=== PATIENT | male | born 1970 | race Caucasian/White ===

== ENCOUNTER 2024-01-30 07:13 | Emergency (ER) | payer OTHER ==
[~2024-01-30] VITALS: Ht 162.6 cm; Wt 83.9 kg
[~2024-01-30 07:13] MED LIST: CITA20 PO; HYDACE10B PO; HYDACE5 PO; LIDO5TP TD; OXYACE5T PO; TRAM50 PO
[2024-01-30] MEDS ORDERED: ATORVASTATIN CA20 MG PO (08:05)
[2024-01-30] MEDS ORDERED: LOSARTAN POTASS25 M2 PO (08:05)
[2024-01-30] MEDS ORDERED: Meclizine HCl 25 MG Tab PO ONE (08:05)
[2024-01-30] MEDS ORDERED: FUROSEMIDE20 MG PO (08:05)
[2024-01-30 08:11] LABS: BASOPHILS ABSOLUTE AUTO 0.03 K/mm3 (0.00-0.23); BASOPHILS PERCENT AUTO 0 % (0-2); EOSINOPHILS ABSOLUTE AUTO 0.05 K/mm3 (0.00-0.68); EOSINOPHILS PERCENT AUTO 1 % (0-6); Hematocrit 43.6 % (37.0-53.0); Hemoglobin 15.2 g/dL (13.5-17.5); IMMATURE GRAN ABSOLUTE AUTO 0.04 K/mm3 (0.00-0.10); IMMATURE GRAN PERCENT AUTO 1 % (0-1); LYMPHOCYTES PERCENT AUTO 23 % (21-46); MONOCYTES ABSOLUTE AUTO 0.58 K/mm3 (0.16-1.47); MONOCYTES PERCENT AUTO 8 % (4-13); Mean Corpuscular HGB 32.8 pg (26.0-34.0); Mean Corpuscular HGB Conc 34.9 g/dL (31.5-36.5); Mean Corpuscular Volume 94 fL (80-100); Mean Platelet Volume 10.8 fL (9.1-12.4); NEUTROPHILS ABSOLUTE AUTO 4.98 K/mm3 (1.96-9.15); NEUTROPHILS PERCENT AUTO 68 % (41-73); Platelet Count 168 K/mm3 (150-400); RDW Coefficient Variation 12.4 % (11.7-14.2); Red Blood Cell Count 4.64 M/mm3 (4.30-5.90); White Blood Cell Count 7.38 K/mm3 (4.00-11.30)
[2024-01-30 08:30] LABS: Albumin, Blood 4.2 g/dL (3.4-5.0); Albumin/Globulin Ratio 1.1 (0.8-1.8); Bilirubin, Total 0.6 mg/dL (0.1-1.0); Bun/Creatinine Ratio 13.5 (12.0-20.0); Calcium, Blood 8.6 mg/dL (8.5-10.1); Creatinine, Blood 0.89 mg/dL (0.60-1.20); Globulin, Blood 3.7 g/dL (2.2-4.0); Potassium, Blood 3.8 mmol/L (3.5-5.5); Total Protein, Blood 7.9 g/dL (6.4-8.2)
[2024-01-30] MEDS ORDERED: MECL25 PO (08:58)
[2024-01-30 09:02] VITALS: BP 108/86
== END 2024-01-30 09:20 | disposition home or self-care (01) ==
LOC: ER 07:13
PROVIDERS: Emergency Medicine
DX: R40.4 Transient alteration of awareness (principal); R42 Dizziness and giddiness; R06.02 Shortness of breath; G47.33 Obstructive sleep apnea (adult) (pediatric); E78.5 Hyperlipidemia, unspecified; F17.210 Nicotine dependence, cigarettes, uncomplicated; Z88.0 Allergy status to penicillin; Z88.5 Allergy status to narcotic agent
CPT/HCPCS: 71045; 80053; 84484; 85025; 93005; 93010; 99284-25; A9270

== ENCOUNTER → 2024-04-10 | Outpatient (CLI) | payer OTHER ==
[~2024-04-10] MED LIST changes: +ATORVASTATIN CA20 MG PO; +ATORVASTATIN CA80 M1 PO; +CEFD300 PO; +ENTRESTO 24 MG1 EAC2 PO; +FURO20 PO; +FUROSEMIDE20 MG PO; +JARDIANCE10 MG PO; +LEVAQUIN750 MG PO; +LOSARTAN POTASS25 M2 PO; +MECL25 PO; +METO25ER PO; +POTCHL20ER PO
[2024-04-10 14:34] LABS: BASOPHILS ABSOLUTE AUTO 0.03 K/mm3 (0.00-0.23); BASOPHILS PERCENT AUTO 0 % (0-2); EOSINOPHILS PERCENT AUTO 0 % (0-6); Hematocrit 46.6 % (37.0-53.0); Hemoglobin 15.9 g/dL (13.5-17.5); IMMATURE GRAN ABSOLUTE AUTO 0.08 K/mm3 (0.00-0.10); IMMATURE GRAN PERCENT AUTO 1 % (0-1); LYMPHOCYTES PERCENT AUTO 9 % (21-46); MONOCYTES ABSOLUTE AUTO 1.34 K/mm3 (0.16-1.47); MONOCYTES PERCENT AUTO 9 % (4-13); Mean Corpuscular HGB 32.9 pg (26.0-34.0); Mean Corpuscular HGB Conc 34.1 g/dL (31.5-36.5); Mean Corpuscular Volume 97 fL (80-100); Mean Platelet Volume 10.4 fL (9.1-12.4); NEUTROPHILS ABSOLUTE AUTO 12.43 K/mm3 (1.96-9.15); NEUTROPHILS PERCENT AUTO 81 % (41-73); Platelet Count 171 K/mm3 (150-400); RDW Coefficient Variation 12.4 % (11.7-14.2); RDW Standard Deviation 43.8 fL (35.1-46.3); Red Blood Cell Count 4.83 M/mm3 (4.30-5.90); White Blood Cell Count 15.28 K/mm3 (4.00-11.30)
[2024-04-10 14:47] LABS: Albumin, Blood 3.9 g/dL (3.4-5.0); Albumin/Globulin Ratio 0.9 (0.8-1.8); Bilirubin, Total 1.5 mg/dL (0.1-1.0); Bun/Creatinine Ratio 12.6 (12.0-20.0); Creatinine, Blood 1.27 mg/dL (0.60-1.20); Globulin, Blood 4.5 g/dL (2.2-4.0); Potassium, Blood 3.9 mmol/L (3.5-5.5); Total Protein, Blood 8.4 g/dL (6.4-8.2)
== END ==
LOC: LAB SHORT 14:29
PROVIDERS: Chiropractor
DX: R00.0 Tachycardia, unspecified (principal); R41.82 Altered mental status, unspecified
CPT/HCPCS: 80053; 84484; 85025

== ENCOUNTER → 2024-04-10 | Outpatient (CLI) | payer OTHER | LOC: LAB SHORT 17:09 | DX: R82.998 Other abnormal findings in urine (principal) | CPT/HCPCS: 87086 ==

== ENCOUNTER 2024-04-11 08:59 | Inpatient (IN) | payer OTHER ==
[~2024-04-11] VITALS: Ht 162.6 cm; Wt 81.4 kg
[~2024-04-11 08:59] MED LIST changes: -ATORVASTATIN CA80 M1 PO; -CEFD300 PO; -ENTRESTO 24 MG1 EAC2 PO; -FURO20 PO; -JARDIANCE10 MG PO; -LEVAQUIN750 MG PO; -METO25ER PO; -POTCHL20ER PO
[2024-04-11] MEDS ORDERED: CefTRIAXone Sodium 2,000 MG in NS 100 ML IV ONE (09:25)
[2024-04-11] MEDS ORDERED: NS 1,000 ML IV SCH ×2 (09:25→09:45)
[2024-04-11] MEDS ORDERED: Acetaminophen 500 MG Tab PO ONE (10:05)
[2024-04-11 10:06] LABS: BASOPHILS ABSOLUTE AUTO 0.04 K/mm3 (0.00-0.23); BASOPHILS PERCENT AUTO 0 % (0-2); EOSINOPHILS PERCENT AUTO 0 % (0-6); Hematocrit 46.7 % (37.0-53.0); Hemoglobin 15.6 g/dL (13.5-17.5); IMMATURE GRAN ABSOLUTE AUTO 0.08 K/mm3 (0.00-0.10); IMMATURE GRAN PERCENT AUTO 1 % (0-1); LYMPHOCYTES ABSOLUTE AUTO 1.24 K/mm3 (0.84-5.20); LYMPHOCYTES PERCENT AUTO 8 % (21-46); MONOCYTES ABSOLUTE AUTO 1.21 K/mm3 (0.16-1.47); MONOCYTES PERCENT AUTO 7 % (4-13); Mean Corpuscular HGB 32.5 pg (26.0-34.0); Mean Corpuscular HGB Conc 33.4 g/dL (31.5-36.5); Mean Corpuscular Volume 97 fL (80-100); Mean Platelet Volume 10.6 fL (9.1-12.4); NEUTROPHILS ABSOLUTE AUTO 13.86 K/mm3 (1.96-9.15); NEUTROPHILS PERCENT AUTO 84 % (41-73); Platelet Count 155 K/mm3 (150-400); RDW Coefficient Variation 12.2 % (11.7-14.2); RDW Standard Deviation 44.5 fL (35.1-46.3); White Blood Cell Count 16.43 K/mm3 (4.00-11.30)
[2024-04-11 10:21] LABS: Albumin, Blood 3.9 g/dL (3.4-5.0); Albumin/Globulin Ratio 0.8 (0.8-1.8); Bilirubin, Total 1.8 mg/dL (0.1-1.0); Bun/Creatinine Ratio 15.1 (12.0-20.0); Calcium, Blood 9.2 mg/dL (8.5-10.1); Creatinine, Blood 1.19 mg/dL (0.60-1.20); Globulin, Blood 4.6 g/dL (2.2-4.0); Magnesium, Blood 2.4 mg/dL (1.6-2.4); Phosphorus, Blood 2.2 mg/dL (2.5-4.9); Potassium, Blood 3.7 mmol/L (3.5-5.5); Total Protein, Blood 8.5 g/dL (6.4-8.2)
[2024-04-11 10:53] LABS: Influenza A, PCR NEGATIVE (NEGATIVE); Influenza B, PCR NEGATIVE (NEGATIVE); Resp Syncytial Virus, PCR NEGATIVE (NEGATIVE); SARS-Cov-2 (COVID-19) PCR, MMC NEGATIVE (NEGATIVE)
[2024-04-11 11:48] LABS: Source, Urine Clean Catch
[2024-04-11 11:55] LABS: Appearance, Urine Clear (Clear); Bilirubin, Urine Neg (Neg); Blood, Urine 5+ (Neg); Color, Urine Yellow (P-Yellow); Glucose Qualitative, Urine 4+ (Neg); Ketones, Urine 2+ (Neg); Leukocyte Esterase, Urine Neg (Neg); Nitrite, Urine Neg (Neg); Protein, Urine 3+ (Neg); Specific Gravity, Urine 1.025 (1.003-1.022); Urobilinogen, Urine 2+ (Normal)
[2024-04-11] MEDS ORDERED: Ondansetron 4 MG TAB PO PRN (11:55)
[2024-04-11] MEDS ORDERED: Acetaminophen 325 MG TABLET PO PRN (11:55)
[2024-04-11] MEDS ORDERED: ATORVASTATIN CA80 M1 PO (11:59)
[2024-04-11] MEDS ORDERED: JARDIANCE10 MG PO (12:00)
[2024-04-11] MEDS ORDERED: FURO20 PO (12:01)
[2024-04-11] MEDS ORDERED: METO25ER PO (12:02)
[2024-04-11] MEDS ORDERED: ENTRESTO 24 MG1 EAC2 PO (12:03)
[2024-04-11 12:08] LABS: Amorphous Mod (0-Heavy); Bacteria Few /hpf; Squamous Epithelial Cells Rare /hpf (Few)
[2024-04-11] MEDS ORDERED: CEFD300 PO (12:38)
[2024-04-11 13:54] VITALS: BP 103/63
--- NOTE | 2024-04-11 18:11 | NUR ---
SHIFT SUMMARY PT DROWSY, BUT AROUSABLE AND ABLE TO ANSWER QUESTIONS APPROPRIATELY, HAD A SOFT BP, AND ELEVATED TEMP. TYLENOL GIVEN PER EMAR AND NOTIFIED. TEMP IMPROVED AFTER TYLENOL ADMINISTRATION. PT DID NOT AMBULATE AND HAD A POOR PO INTAKE. NO OTHER ACUTE CHANGES. CALL LIGHT WITHIN REACH AND PT ABLE TO MAKE NEEDS KNOWN.
[2024-04-11 20:30] VITALS: BP 121/55
[2024-04-11] MEDS ORDERED: Doxycycline Hyclate 100 MG in Dextrose 5% 250 ML IV SCH (21:00)
[2024-04-12 04:33] VITALS: BP 106/58
[2024-04-12 04:33] LABS: BASOPHILS ABSOLUTE AUTO 0.03 K/mm3 (0.00-0.23); BASOPHILS PERCENT AUTO 0 % (0-2); EOSINOPHILS ABSOLUTE AUTO 0.06 K/mm3 (0.00-0.68); EOSINOPHILS PERCENT AUTO 1 % (0-6); Hematocrit 41.5 % (37.0-53.0); Hemoglobin 14.5 g/dL (13.5-17.5); IMMATURE GRAN ABSOLUTE AUTO 0.09 K/mm3 (0.00-0.10); IMMATURE GRAN PERCENT AUTO 1 % (0-1); LYMPHOCYTES ABSOLUTE AUTO 0.89 K/mm3 (0.84-5.20); LYMPHOCYTES PERCENT AUTO 7 % (21-46); MONOCYTES ABSOLUTE AUTO 0.88 K/mm3 (0.16-1.47); MONOCYTES PERCENT AUTO 7 % (4-13); Mean Corpuscular HGB 33.1 pg (26.0-34.0); Mean Corpuscular HGB Conc 34.9 g/dL (31.5-36.5); Mean Corpuscular Volume 95 fL (80-100); Mean Platelet Volume 10.9 fL (9.1-12.4); NEUTROPHILS ABSOLUTE AUTO 11.19 K/mm3 (1.96-9.15); NEUTROPHILS PERCENT AUTO 85 % (41-73); Platelet Count 148 K/mm3 (150-400); RDW Coefficient Variation 12.2 % (11.7-14.2); RDW Standard Deviation 42.9 fL (35.1-46.3); Red Blood Cell Count 4.38 M/mm3 (4.30-5.90); White Blood Cell Count 13.14 K/mm3 (4.00-11.30)
[2024-04-12 05:16] LABS: Albumin, Blood 3.1 g/dL (3.4-5.0); Albumin/Globulin Ratio 0.8 (0.8-1.8); Bilirubin, Total 0.9 mg/dL (0.1-1.0); Calcium, Blood 8.7 mg/dL (8.5-10.1); Creatinine, Blood 1.07 mg/dL (0.60-1.20); Globulin, Blood 4.1 g/dL (2.2-4.0); Potassium, Blood 3.4 mmol/L (3.5-5.5); Total Protein, Blood 7.2 g/dL (6.4-8.2)
--- NOTE | 2024-04-12 06:29 | NUR ---
SHIFT SUMMARY PATIENT COMPLAINTS OF PAIN 7 OF 19 AT APPROXIMATELY 2100. TYLENOL ADMINISTERED. AT 0400 PATIENT VITALS CHECKED.121/55. PATIENT TEMP 102.6. PAIENT COMPLAINING OF PAIN. ADMIMISTERED TYLENOL RECHECKED VITALS. TEMP WAS 99.6. PATIENT ASKED IF HE WAS GOING TO BE ABLE TO TAKE HIS HEART MEDICATION THAT HE HAS AT HOME. ADVISED THAT HE HAS SEVERAL MEDICATIONS THAT ARE TO BE GIVEN AT THE 0800 AND 0999 HOUR. WENT THROUGH THE LIST, HE STATED THAT THOSE ARE THE SAME HE HAS AT HOME. BED ON LOW POSITON, RAILS TIMES 2, CALL LIGHT WITHIN REACH.
[2024-04-12 07:27] VITALS: BP 107/71
[2024-04-12] MEDS ORDERED: CefTRIAXone Sodium 1,000 MG in NS 100 ML IV SCH (08:00)
[2024-04-12] MEDS ORDERED: NS 250 ML IV PRN (08:05)
[2024-04-12] MEDS ORDERED: Atorvastatin 10 MG Tab PO SCH (09:00)
[2024-04-12] MEDS ORDERED: Enoxaparin 40 MG/0.4 ML SYR SC SCH (09:00)
[2024-04-12] MEDS ORDERED: Furosemide 20 MG Tab PO SCH (09:00)
[2024-04-12] MEDS ORDERED: Sacubitril/Valsartan 24 MG-26 MG Tab PO SCH (09:00)
[2024-04-12] MEDS ORDERED: Metoprolol Succinate 25 MG TABCR PO SCH (09:00)
[2024-04-12] MEDS ORDERED: Empagliflozin 10 MG TAB PO SCH (09:00)
[2024-04-12 14:32] VITALS: BP 111/81
--- NOTE | 2024-04-12 18:44 | NUR ---
SHIFT SUMMARY PT HAD A FEVER OF 103.0 THAT WAS MEDICATED W/ TYELNOL PER THE EMAR. TEMP IMPROVED AFTER ADMINISTRATION. PT AMB TO THE BATHROOM W/ MINIMIAL ASSIST AND TOLERATED IT WELL DESPITE WEAKNESS. NO OTHER ACUTE CHANGES THIS SHIFT. CALL LIGHT WITHIN REACH AND PT ABLE TO MAKE NEEDS KNOWN.
[2024-04-12 20:21] VITALS: BP 91/65
[2024-04-13 03:00] VITALS: BP 115/75
[2024-04-13 05:13] LABS: BASOPHILS ABSOLUTE AUTO 0.03 K/mm3 (0.00-0.23); BASOPHILS PERCENT AUTO 0 % (0-2); EOSINOPHILS ABSOLUTE AUTO 0.03 K/mm3 (0.00-0.68); EOSINOPHILS PERCENT AUTO 0 % (0-6); Hematocrit 39.4 % (37.0-53.0); Hemoglobin 14.2 g/dL (13.5-17.5); IMMATURE GRAN ABSOLUTE AUTO 0.06 K/mm3 (0.00-0.10); IMMATURE GRAN PERCENT AUTO 1 % (0-1); LYMPHOCYTES ABSOLUTE AUTO 1.31 K/mm3 (0.84-5.20); LYMPHOCYTES PERCENT AUTO 13 % (21-46); MONOCYTES ABSOLUTE AUTO 0.89 K/mm3 (0.16-1.47); MONOCYTES PERCENT AUTO 9 % (4-13); Mean Corpuscular HGB 33.3 pg (26.0-34.0); Mean Corpuscular Volume 92 fL (80-100); Mean Platelet Volume 11.5 fL (9.1-12.4); NEUTROPHILS ABSOLUTE AUTO 8.12 K/mm3 (1.96-9.15); NEUTROPHILS PERCENT AUTO 78 % (41-73); Platelet Count 168 K/mm3 (150-400); RDW Coefficient Variation 12.2 % (11.7-14.2); RDW Standard Deviation 41.3 fL (35.1-46.3); Red Blood Cell Count 4.27 M/mm3 (4.30-5.90); White Blood Cell Count 10.44 K/mm3 (4.00-11.30)
[2024-04-13 05:32] LABS: Albumin, Blood 2.8 g/dL (3.4-5.0); Albumin/Globulin Ratio 0.7 (0.8-1.8); Bilirubin, Total 0.9 mg/dL (0.1-1.0); Bun/Creatinine Ratio 17.9 (12.0-20.0); Calcium, Blood 8.4 mg/dL (8.5-10.1); Creatinine, Blood 0.84 mg/dL (0.60-1.20); Globulin, Blood 3.8 g/dL (2.2-4.0); Potassium, Blood 3.2 mmol/L (3.5-5.5); Total Protein, Blood 6.6 g/dL (6.4-8.2)
[2024-04-13 07:45] VITALS: BP 108/75
[2024-04-13] MEDS ORDERED: Potassium Chloride 20 MEQ TabCR PO SCH (13:00)
[2024-04-13 15:40] VITALS: BP 103/70
--- NOTE | 2024-04-13 17:41 | NUR ---
SHIFT SUMMARY PT DID NOT HAVE A FEVER AND AMB SEVERAL TIMES T/O SHIFT. PT'S POTASSIUM LOW THIS AM AND KDUR GIVEN PER EMAR. NO OTHER ACUTE CHANGES. CALL LIGHT WITHIN REACH AND PT ABLE TO MAKE NEEDS KNOWN.
[2024-04-13 19:56] VITALS: BP 106/70
[2024-04-14 02:21] VITALS: BP 108/77
--- NOTE | 2024-04-14 04:09 | NUR ---
SHIFT SUMMARY PATIENT HAD NO ACUTE CHANGES. AXO X4 AND SBA TO BR. DENIES CHEST PAIN, SOB, AND N/V. VSS/AFEBRILE. PIV INTACT. IV ABX INFUSED. SLEPT MOST OF THE SHIFT. ABLE TO MAKE NEEDS KNOW. COOPERATIVE WITH CARE. CALL LIGHT IN REACH. BED IN LOWEST POSITION. WILL CONTINUE TO MONITOR UNTIL DAY SHIFT NURSE ASSUMES CARE.
[2024-04-14 05:31] LABS: Albumin, Blood 2.7 g/dL (3.4-5.0); Albumin/Globulin Ratio 0.7 (0.8-1.8); Bilirubin, Total 0.7 mg/dL (0.1-1.0); Bun/Creatinine Ratio 16.6 (12.0-20.0); Calcium, Blood 8.6 mg/dL (8.5-10.1); Creatinine, Blood 0.78 mg/dL (0.60-1.20); Globulin, Blood 3.9 g/dL (2.2-4.0); Potassium, Blood 3.6 mmol/L (3.5-5.5); Total Protein, Blood 6.6 g/dL (6.4-8.2)
[2024-04-14 07:29] VITALS: BP 113/76
[2024-04-14] MEDS ORDERED: POTCHL20ER PO (09:45)
[2024-04-14] MEDS ORDERED: LEVAQUIN750 MG PO (09:46)
--- NOTE | 2024-04-14 12:42 | NUR ---
REPORT RECEIVED VERIFIED A/O VSS AT BEDSIDE PT WAITING TO GO HOME TODAY STATES HE FEELS GOOD. ASSESSMENT NEG. MD INTO SEE PT AND DISCHARGE ORDERS GIVEN. PT TO DC AFTER ANTIBIOTICS DONE, DISCHARGE INSTRUCTIONS GIVEN, MEDS FAXED. 1130 PT IV DCED AND DISCHARGED, TAKEN DOWN VIA WHEELCHAIR.
== END 2024-04-14 12:10 | disposition home or self-care (01) | DRG 871 ==
LOC: ER 08:59 → MEDS 09:00
PROVIDERS: Emergency Medicine; Internal Medicine Endocrinology, Diabetes & Metabolism; ADMIT Family Medicine
DX: A41.9 Sepsis, unspecified organism (principal); J18.9 Pneumonia, unspecified organism; E87.6 Hypokalemia; E80.6 Other disorders of bilirubin metabolism; R42 Dizziness and giddiness; I50.9 Heart failure, unspecified; K52.9 Noninfective gastroenteritis and colitis, unspecified; E78.5 Hyperlipidemia, unspecified; R82.90 Unspecified abnormal findings in urine; G47.33 Obstructive sleep apnea (adult) (pediatric); F10.90 Alcohol use, unspecified, uncomplicated; Z88.0 Allergy status to penicillin; Z88.5 Allergy status to narcotic agent; Z79.899 Other long term (current) drug therapy; Z79.01 Long term (current) use of anticoagulants; Z91.199 Patient's noncompliance with other medical treatment and regimen due to unspecified reason; Z87.891 Personal history of nicotine dependence; Z79.2 Long term (current) use of antibiotics
CPT/HCPCS: 0241U; 36415; 71045; 74177; 80053; 81001; 83605; 83735; 84100; 84145; 85025; 87040; 93005; 93010; 96365; 96366; 96372; 96375; 96376; 99285-25; A9270; G0378; J0696; J1650; J7030; J7050; J7060; Q9967